=== PATIENT | female | born 1995 | race Caucasian/White ===

== ENCOUNTER 2019-01-16 15:21 | Emergency (ER) | payer MEDICAID ==
[~2019-01-16] VITALS: Ht 172.7 cm; Wt 106.1 kg
[2019-01-16 15:35] VITALS: BP 117/64; Ht 172.7 cm; Wt 106.1 kg
== END 2019-01-16 17:04 | disposition home or self-care (01) ==
LOC: ED 15:21
DX: N12 Tubulo-interstitial nephritis, not specified as acute or chronic (principal)
CPT/HCPCS: J0696